=== PATIENT | male | born 1980 | race Caucasian/White ===

== ENCOUNTER 2018-03-12 06:35 | Day surgery (SDC) | payer BC ==
[2018-03-12] MEDS: Lactated Ringers 1,000 ML IV SCH (08:06)
[2018-03-12] MEDS ORDERED: fentaNYL 100 MCG/2 ML SDV ONE (09:13)
[2018-03-12] MEDS ORDERED: Propofol 200 MG/20 ML SDV ONE ×2 (09:13→09:30)
[2018-03-12 10:22] VITALS: BP 121/62
--- NOTE | 2018-03-12 12:54 | OR ---
PRE-OPERATIVE DIAGNOSES: 1. Chronic resistant gastroesophageal reflux disease for the past 5 to 6 years at least. Triggers include acidic foods, barbecue sauce, peanut butter, also certain pops/soda. 2. Occasional dysphagia. 3. History of melena, remotely, but not recently. 4. Regular tobacco use, less than a pack per day. Positive alcohol use of average of 3 drinks per day, 4 to 5 days per week. No regular NSAID use. The patient does use Tums daily almost with every meal. Previously Zantac, [id number] Prilosec ineffective. POST-OPERATIVE DIAGNOSES: 1. Mild antritis. Cold biopsy x2 bites taken for path and Helicobacter pylori. 2. Two tiny sliding-type hiatal hernia with mild esophagitis. Cold biopsy x2 bites taken. This area does bleed easily. PROCEDURE: Esophagogastroduodenoscopy with cold biopsy x2 sites. ANESTHESIA: Monitored anesthesia care. DESCRIPTION OF PROCEDURE: Juan C is a 38-year-old male, who was brought to the endoscope suite after discussion of risks and benefits (including but not limited to reaction to medication, bleeding, infection, aspiration, perforation). Informed consent was obtained for monitored anesthesia care and esophagogastroduodenoscopy along with possible biopsy and/or dilatation. Pre-procedure exam including oral cavity was unremarkable except for presence of dentures. IV, oxygen, and monitors were placed. Topical anesthesia consisting of Cetacaine spray was used in the pharynx. Patient was placed in the left lateral position and sedation was administered. A bite block was placed gently and scope lightly lubricated and passed through the bite block and over the tongue. Hypopharynx and vocal cords were visualized and unremarkable. Scope was passed through the cricopharynx and into the esophagus. The scope was then passed through the distal esophagus and the GE junction was visualized and photographed. GE junction revealed a tiny sliding-type hiatal hernia with some mild esophagitis. On the way out, cold biopsy x2 bites taken. This area did bleed easily with the biopsies. Vocal cords were visualized. The scope was advanced into the stomach and gastric mcconnell was suctioned. Pylorus was identified and intubated and then the scope was advanced to the third portion of the duodenum. The second and third portions of the duodenum were unremarkable. The duodenal bulb was visualized and unremarkable. The scope was brought back into the stomach. The pylorus and the antrum revealed some mild antritis. Cold biopsy x2 bites taken for path and H. pylori. The scope was retroflexed to visualize the angularis, fundus, body, and cardia. These were unremarkable. The stomach was desufflated of air and then the scope was slowly withdrawn, and the esophagus was closely visualized during withdrawal all the way into the posterior pharynx. In the upper esophagus there was an area of heterotopic type mucosa. Cold biopsy x2 bites was taken of this area and sent for path. The patient tolerated the procedure well and went to recovery in stable condition. The patient was monitored until at baseline status. Findings and discharge instructions were reviewed and the patient was discharged in good condition. COMPLICATIONS: None. The patient did experience quite a bit of oral secretions during the procedure which did require me to remove the scope and suction the oropharynx area. He was restless and trying to sit up during this time, but then relaxed after increased propofol sedation and suctioning. TOTAL TIME: 12 minutes. ESTIMATED BLOOD LOSS: 2 to 3 mL. RECOMMENDATIONS/FOLLOW-UP: We will await results of path report. In the meantime, we will start the patient on pantoprazole 40 mg twice a day for the next 4 to 6 weeks. Once symptoms controlled, can consider decreasing dose down to 40 mg once a day. We will also recommend avoiding or limiting tobacco and alcohol intake and NSAID use although the latter is pretty infrequent. I would like to kindly thank, Nelson Morfin, for this referral. DMB: 03/12/2018 10:00:40 MODL: 03/12/2018 12:45:03 /[id number]
== END 2018-03-12 10:55 | disposition home or self-care (01) ==
LOC: VM.SDS 06:35
PROVIDERS: ATTEND Family Medicine
DX: K21.9 Gastro-esophageal reflux disease without esophagitis (principal); K29.60 Other gastritis without bleeding; K20.9 Esophagitis, unspecified; K44.9 Diaphragmatic hernia without obstruction or gangrene; F17.210 Nicotine dependence, cigarettes, uncomplicated
CPT/HCPCS: J2704; J3010; J7120